=== PATIENT | male | born 2000 | race Caucasian/White ===

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

== ENCOUNTER 2022-11-01 16:06 | Emergency (ER) | payer MEDICAID, SELFPAY ==
[2022-11-01 16:08] VITALS: BP 125/72; PULSE 84; RESP 14; TEMP 36.7; O2SAT 98; BMI 27.7
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
== END 2022-11-01 19:35 | disposition home or self-care (01) ==
PROVIDERS: Emergency Provider Student in an Organized Health Care Education/Training Program; PCP Pediatrics; Visit Provider Student in an Organized Health Care Education/Training Program
DX: S06.0X0A Concussion without loss of consciousness, initial encounter (principal); S00.83XA Contusion of other part of head, initial encounter; Y04.2XXA Assault by strike against or bumped into by another person, initial encounter; K04.7 Periapical abscess without sinus; Z79.899 Other long term (current) drug therapy
CPT/HCPCS: 70450; 70486; 99283

== ENCOUNTER 2022-12-03 12:28 | Emergency (ER) | payer MEDICAID, SELFPAY ==
[2022-12-03 12:30] VITALS: BP 142/81; PULSE 82; RESP 16; TEMP 36.2; O2SAT 97; BMI 26.7
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
[2022-12-03 13:43] VITALS: RESP 16
== END 2022-12-03 13:44 | disposition home or self-care (01) ==
PROVIDERS: Emergency Provider Emergency Medicine; PCP Pediatrics; Visit Provider Emergency Medicine
DX: S61.412A Laceration without foreign body of left hand, initial encounter (principal); S61.213A Laceration without foreign body of left middle finger without damage to nail, initial encounter; S60.212A Contusion of left wrist, initial encounter; Z23 Encounter for immunization; V40.7XXA Person on outside of car injured in collision with pedestrian or animal in traffic accident, initial encounter; Y92.028 Other place in mobile home as the place of occurrence of the external cause
CPT/HCPCS: 90715; 73110; 73130; 90471; 99284

== ENCOUNTER 2023-01-07 13:37 | Emergency (ER) | payer MEDICAID, SELFPAY ==
[2023-01-07 13:38] VITALS: BP 127/83; PULSE 90; RESP 16; TEMP 36.7; O2SAT 98
[2023-01-07 13:45] VITALS: BMI 25.9
--- NOTE | 2023-01-07 13:48 | RAD_ITS ---
EXAM: XR RIGHT KNEE COMPLETE, 4 OR MORE VIEWS CLINICAL INDICATION: Injury/Pain TECHNIQUE: Four or more views of the right knee. COMPARISON: No relevant prior studies available. FINDINGS: BONES/JOINTS: Unremarkable. No acute fracture. No subluxation. Normal alignment. Preservation of the joint space. No sclerotic or destructive changes observed. SOFT TISSUES: Unremarkable. No soft tissue swelling or gas. No radiopaque foreign body. RAD/Knee 4 or More Views IMPRESSION: Negative right knee x-rays. Electronically Signed: Josh Olsen MD at 14:43 EDT ,
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
== END 2023-01-07 14:54 | disposition home or self-care (01) ==
PROVIDERS: Emergency Provider Emergency Medicine; PCP Pediatrics; Visit Provider Emergency Medicine
DX: S80.01XA Contusion of right knee, initial encounter (principal); W22.03XA Walked into furniture, initial encounter; Y93.83 Activity, rough housing and horseplay; F84.0 Autistic disorder
CPT/HCPCS: 73564; 99282

== ENCOUNTER 2023-07-08 18:40 | Emergency (ER) | payer MEDICAID, SELFPAY ==
[2023-07-08 18:41] VITALS: BP 138/76; PULSE 63; PULSE 69; RESP 15; TEMP 36.2; O2SAT 97; O2SAT 99; BMI 24.7
--- NOTE | 2023-07-08 18:50 | ED.VIS.DENTA ---
HPI History of Present Illness Chief Complaint: Dental Detail of Chief Complaint: Dental pain Informant: patient Narrative Narrative: Patient presents with dental pain x 4 days. He denies any trauma to his teeth. Does not have a dentist. Denies fevers or chills or sweats. Describes pain to upper and lower left teeth. [facility] Medical History ADHD Autism Home Medications amoxicillin 500 mg tablet 500 mg PO TID #30 tabs 07/08/23 [Rx Last Taken Unknown] hydrocodone-acetaminophen 5-325mg 5mg-325mg 1 tab PO Q4H PRN PRN Pain 2 days #10 TABLETS 07/08/23 [Rx Last Taken Unknown] Allergy/AdvReac Type Severity Reaction Status Date / Time No Known Allergies Allergy Verified 07/08/23 18:43 Social History Smoking Status: Never smoker do you feel safe at home: Yes ROS ROS ED Review of Systems ROS Unobtainable: other Constitutional Constitutional ED: Reports lethargy; Denies chills, fever(s), sweats or weight loss Eyes Eyes: Denies blurry vision, change in vision or diplopia ENT ENT ED: Reports other Details: Dental pain ; Denies rhinorrhea or sore throat Cardiovascular Cardiovascular: Denies chest pain, orthopnea or racing heartbeat Respiratory/Chest Respiratory/Chest: Denies cough, dyspnea, dyspnea on exertion, orthopnea or sputum Gastrointestinal Gastrointestinal: Denies abdominal pain, diarrhea, nausea or vomiting Genitourinary Genitourinary ED: Denies dysuria, hematuria or urinary frequency Musculoskeletal Musculoskeletal: Denies arthralgias, back pain, myalgias or neck pain Integumentary Denies abscess, Abrasions or rash Neurologic Neurologic: Denies headache(s) or weakness Psychiatric Psychiatric: Denies anxiety, depression or suicidal thoughts Endocrine Endocrinology: Denies polydipsia, polyphagia or polyuria Hematologic/Lymphatic Hematologic/Lymphatic: Denies easy bleeding, easy bruising or lymphadenopathy Allergic/Immunologic Allergic/Immunologic ED: Denies mouth swelling, tongue swelling or urticaria EXAM Physical Exam Const Vital Signs: 07/08/23 18:41 07/08/23 18:41 Temperature 97.2 F L 97.2 F L Temperature Source Temporal Temporal Pulse Rate 63 69 Respiratory Rate 15 15 Blood Pressure 138/76 H 138/76 H Blood Pressure Mean 96 96 Pulse Ox 99 97 Oxygen Delivery Method Room Air Room Air Positive well nourished and well developed General Appearance ED: well developed and NAD HEENT Reports TM's clear and moist mucous membranes HEENT Narrative: Dentition-patient has multiple broken and carious teeth. Specifically has tenderness over tooth #13 and 20. Teeth are carried and #20 is worn down to the gumline. No gingival erythema or abscess noted. There is no facial swelling or cellulitic changes. normocephalic and atraumatic; Negative for trauma or tenderness Tympanic Membrane ED: Yes TM's clear Eyes PERRL and EOMs intact bilaterally General Eye ED: Negative for pale conjunctiva or scleral icterus Neck no lymphadenopathy, supple and no JVD General: Negative for tenderness Chest Wall inspection of chest normal and palpation of chest normal Chest: Negative for tenderness Resp normal respiratory effort and clear to auscultation bilaterally Effort and Inspection: Negative for respiratory distress or pain with movement Auscultation: Negative for rhonchi, wheezes or diminished lung sounds Cardio regular rate, regular rhythm, S1 normal heart sound, S2 normal heart sound and no murmurs Peripheral Pulses: pulses 2+ throughout GI normal to inspection, nondistended, normoactive bowel sounds, soft to palpation, non-tender, non-distended and no masses Back/Spine no CVA tenderness and no thoracic nor lumbar tenderness Extremity normal to inspection General Extremety ED: Negative for edema General Extremity: Negative for edema Neuro oriented x3, CN's II-XII intact bilaterally, no sensory deficits noted and gait normal Sensorium / Orientation: awake, alert, oriented to person, oriented to place and oriented to time Motor Exam: strength 5/5 throughout and strength abnormal Psych mental status grossly normal Skin no rashes or lesions noted and no wounds MDM MDM MDM Narrative Medical decision making narrative: Patient presents with 4-day history of dental pain. He will be given a prescription for amoxicillin and few Elizabeth for pain. Advised to follow-up with a dentist at the earliest possible time. Will be given a list of dentists. Discharge Plan Triage Chief Complaint: Dental ED Provider: Edgardo Cordova Dx/Rx/DC Orders Clinical Impression: Dental caries, Pain, dental Instructions: ED Dental Pain Prescriptions: New hydrocodone-acetaminophen [hydrocodone-acetaminophen] 5-325 mg tablet 1 tab PO Q4H PRN PRN (Reason: Pain) 2 Days Qty: 10 0RF amoxicillin 500 mg tablet 500 mg PO TID Qty: 30 0RF Primary Care Provider: Delon Perdomo Referrals: Delon Perdomo DO [Primary Care Provider] - Activity Restrictions/Additional Instructions: Follow-up with dentist at the earliest possible time. Disposition Disposition: Home, Self Care
[2023-07-08 19:28] VITALS: BP 143/84; PULSE 64; RESP 18; TEMP 36.6; O2SAT 97
[2023-07-08] MEDS: AMOXICILLIN 500 MG CAPSULE PO (19:28)
== END 2023-07-08 19:35 | disposition home or self-care (01) ==
LOC: ED 18:55
PROVIDERS: Emergency Provider Emergency Medicine; PCP Pediatrics; Visit Provider Emergency Medicine
DX: K08.89 Other specified disorders of teeth and supporting structures (principal); K02.9 Dental caries, unspecified; S02.5XXA Fracture of tooth (traumatic), initial encounter for closed fracture; X58.XXXA Exposure to other specified factors, initial encounter
CPT/HCPCS: 99282

== ENCOUNTER 2023-10-28 13:14 | Emergency (ER) | payer MEDICAID, SELFPAY ==
[2023-10-28 13:15] VITALS: BP 142/72; PULSE 81; RESP 17; TEMP 36.6; O2SAT 97; BMI 26.5
--- NOTE | 2023-10-28 13:24 | RAD_ITS ---
STUDY: X-RAY - RIGHT ELBOW REASON FOR EXAM: Male, 23 years old. elbow pain TECHNIQUE: 3 view(s) of the elbow. COMPARISON: None. FINDINGS: Normal visualized humerus, radius and ulna. Normal radiocapitellar and ulnotrochlear articulations. The soft tissue structures are unremarkable. RAD/Elbow min 3 Views IMPRESSION: Normal x-ray examination of the elbow. Electronically Signed: Bijan Kohler MD ([place]) at 13:40 EDT ,
--- NOTE | 2023-10-28 13:28 | ED.VIS.DENTA ---
HPI History of Present Illness Chief Complaint: Dental Narrative Narrative: 23-year-old male presenting with chief complaint of dental pain. Its on the upper and lower teeth. He states this is an acute on chronic issue. Pain started yesterday. Patient has poor dentition and states he does not have a dentist. He states he does get flareups where he needs antibiotics. Patient also states that yesterday he was skateboarding and fell and landed on his elbow. He states it hurts over the olecranon. There is no bruising or deformity. [facility] Medical History ADHD Autism Home Medications ?Medication ?Instructions ?Recorded ?Last Taken ?Type amoxicillin 875 mg-potassium 1 tab PO BID #20 tabs 10/28/23 Unknown Rx clavulanate 125 mg tablet naproxen 500 mg tablet (Naprosyn) 500 mg PO BID PRN pain #20 tabs 10/28/23 Unknown Rx Allergy/AdvReac Type Severity Reaction Status Date / Time No Known Allergies Allergy Verified 10/28/23 13:15 Social History Smoking Status: Current every day smoker tobacco type: cigarettes do you feel safe at home: Yes ROS ROS ED Constitutional Constitutional ED: Denies chills, fever(s) or sweats Eyes Eyes: Denies blurry vision or change in vision ENT ENT ED: Reports other Details: Dental pain ; Denies ear pain or sore throat Cardiovascular Cardiovascular: Denies chest pain, palpitations or racing heartbeat Respiratory/Chest Respiratory/Chest: Denies cough, dyspnea or sputum Gastrointestinal Gastrointestinal: Denies abdominal pain, constipation, diarrhea, nausea or vomiting Genitourinary Genitourinary ED: Denies dysuria, hematuria or urinary frequency Musculoskeletal Musculoskeletal: Reports other Details: Right elbow pain ; Denies arthralgias, myalgias or neck pain Integumentary Denies abscess, Abrasions or rash Neurologic Neurologic: Denies headache(s), paresthesias or weakness Psychiatric Psychiatric: Denies anxiety, depression, suicidal ideation or suicidal thoughts Endocrine Endocrinology: Denies polydipsia or polyuria EXAM Physical Exam Const Vital Signs: 10/28/23 13:15 Temperature 97.8 F Temperature Source Temporal Pulse Rate 81 Respiratory Rate 17 Blood Pressure 142/72 H Blood Pressure Mean 95 Pulse Ox 97 Oxygen Delivery Method Room Air Positive well nourished General Appearance ED: NAD HEENT HEENT Narrative: Multiple dental caries and partially edentulous. No fluctuant masses. No sublingual edema. Tongue is not swollen. No submental I have a patient list. trauma Throat: posterior oropharynx normal Eyes PERRL and EOMs intact bilaterally Neck no lymphadenopathy Resp normal respiratory effort Cardio regular rate and regular rhythm GI normal to inspection, nondistended, normoactive bowel sounds Extremity Extremity Narrative: Tenderness palpation over the right olecranon cleared for any significant full range of motion in flexion, extension, pronation, supination. No deformity, bruising Neuro oriented x3 Sensorium / Orientation: alert Motor Exam: strength 5/5 throughout Psych mental status grossly normal Skin no rashes or lesions noted MDM MDM MDM Narrative Medical decision making narrative: 23-year-old male with dental pain. For this I will treat him with Augmentin. I do not see any evidence of Ludewig's angina. His right elbow exam is normal but he wishes to have an x-ray because his sister fractured her elbow before. X-ray of the right elbow will be obtained. X-ray of the right elbow interpreted by myself shows no acute fracture or subluxation. Patient medicated with Naprosyn and Augmentin here in the ED. Feel he stable for discharge. Will give prescription for Augmentin and Naprosyn. He was given a dental referral sheet. Impression: 1. Dental pain 2. Right elbow contusion Lab Data Attestation: I reviewed the patient's lab results. Radiography Diagnostic Testing: Clinical Impression(s) from Imaging Studies Elbow X-Ray 10/28/23 13:24 IMPRESSION: Normal x-ray examination of the elbow. Electronically Signed: Bijan Kohler MD ([place]) at 13:40 EDT Reading Location ID and State: [facility] / [place] , Service support , Discharge Plan Triage Chief Complaint: Dental ED Provider: Alexi Carter Dx/Rx/DC Orders Instructions: ED Contusion, Elbow, ED Dental Pain Prescriptions: New naproxen [Naprosyn] 500 mg tablet 500 mg PO BID PRN (Reason: pain) Qty: 20 0RF amoxicillin-pot clavulanate 875-125 mg tablet 1 tab PO BID Qty: 20 0RF Primary Care Provider: Delon Perdomo Referrals: Delon Perdomo DO [Primary Care Provider] - Print Language: German Disposition Disposition: Home, Self Care
[2023-10-28] MEDS: Amox/Clavulanate 875 MG Tablet PO (13:40)
[2023-10-28] MEDS: Naproxen 500 MG Tablet PO (13:40)
[2023-10-28 14:00] VITALS: BP 138/74; PULSE 85; RESP 18; TEMP 36.3; O2SAT 95
== END 2023-10-28 14:01 | disposition home or self-care (01) ==
LOC: ED 13:48
PROVIDERS: Emergency Provider Student in an Organized Health Care Education/Training Program; PCP Pediatrics; Visit Provider Student in an Organized Health Care Education/Training Program
DX: K08.89 Other specified disorders of teeth and supporting structures (principal); S50.01XA Contusion of right elbow, initial encounter; V00.131A Fall from skateboard, initial encounter; F84.0 Autistic disorder; F17.210 Nicotine dependence, cigarettes, uncomplicated
CPT/HCPCS: 73080; 99284

== ENCOUNTER 2023-11-03 09:24 | Emergency (ER) | payer MEDICAID, SELFPAY ==
[2023-11-03 09:25] VITALS: BP 142/77; PULSE 103; RESP 16; TEMP 36.4; O2SAT 100; BMI 26.5
--- NOTE | 2023-11-03 09:44 | EDS_ITS ---
HPI HPI - URI History of Present Illness Chief Complaint: Sore Throat Narrative Narrative: 23-year-old male past medical history of poor dentition and autism presents with 4 days of sore throat and pain with swallowing. This has been over the last 4 days. Of note, he was seen in the emergency department and placed on Augmentin for dental caries and tooth pain. He states that he has pain with swallowing, and this morning he woke reportedly gasping for air. No fevers or chills, no nausea or vomiting. ROS ROS ED ROS Narrative Constitutional: No fever, no chills. HEENT: Positive sore throat worse with swallowing. No neck pain. No loss of vision. No rhinorrhea. Cardiovascular: No chest pain. No palpitations. No pedal edema. Respiratory: No cough, positive shortness of breath this morning. Abdominal: No abdominal pain. No nausea. No vomiting. Genitourinary: No dysuria. No hematuria. Musculoskeletal: No myalgias. No arthralgias. Neurologic: No headaches. No dizziness. No lightheadedness. Skin: No rash. No change in color. Psychiatric: No depression. No anxiety. [facility] Medical History Substance abuse ADHD Autism Home Medications ?Medication ?Instructions ?Recorded ?Last Taken ?Type amoxicillin 875 mg-potassium 1 tab PO BID #20 tabs 10/28/23 Unknown Rx clavulanate 125 mg tablet naproxen 500 mg tablet (Naprosyn) 500 mg PO BID PRN pain #20 tabs 10/28/23 Unknown Rx clindamycin HCl 300 mg capsule 300 mg PO Q6H #40 CAPSULES 11/03/23 Unknown Rx (Cleocin HCl) dexamethasone 6 mg tablet 6 mg PO DAILY #7 tabs 11/03/23 Unknown Rx Allergy/AdvReac Type Severity Reaction Status Date / Time No Known Allergies Allergy Verified 11/03/23 09:25 Social History Smoking Status: Current every day smoker tobacco type: cigarettes do you feel safe at home: Yes EXAM Physical Exam Narrative Exam Narrative: Afebrile. Vital signs noted. HEENT: Normocephalic. Atraumatic. PERRL, EOMI. Neck soft and supple. No point tenderness or step off. Positive right peritonsillar swelling with noted tonsillar exudate, right. Airway patent. No drooling or trismus. No meningismus. Cardiovascular: Regular rate and rhythm with intermittent tachycardia. No murmurs, rubs, or gallops appreciated. Respiratory: No tachypnea. Lungs clear to auscultation bilaterally. Gastrointestinal: Abdomen soft, nontender, with normoactive bowel sounds. No rebound or guarding. Neurological: Awake. Alert. Nonfocal, nonlateralizing. Skin: No rash. Normal color. No pallor. Musculoskeletal: No pedal edema. Full range of motion extremities. Const Vital Signs: 11/03/23 09:25 Temperature 97.5 F L Temperature Source Temporal Pulse Rate 103 H Respiratory Rate 16 Blood Pressure 142/77 H Blood Pressure Mean 98 Pulse Ox 100 Oxygen Delivery Method Room Air MDM MDM MDM Narrative Medical decision making narrative: Differential diagnosis does include strep pharyngitis versus peritonsillar abscess versus mononucleosis. Patient has already been taking Augmentin for 6 days for his poor dentition. I do not feel laboratory work in the form of CBC/BMP is indicated to look for dehydration. I do not feel CT imaging is indicated. His pulse ox is 100% on room air. There is no drooling or trismus so I have low concern for retropharyngeal abscess. He was able to swallow the Decadron that he was given, and upon repeat examination at approximately 11 AM, he is laying down in the supine position, and on his side resting comfortably. I discussed patient with Dr. Quiroga. He would like a Monospot test drawn, and the patient switched to clindamycin. Additionally, he was put on a Decadron burst of 6 mg for 7 days. He will follow-up with otolaryngology in the next few days. Return instructions to the emergency department were reviewed. Disposition is discharged home in stable condition. History & Record Review Discussion w/independent historian: Patient Discharge Plan Triage Chief Complaint: Sore Throat ED Provider: Josh Ordoñez Dx/Rx/DC Orders Clinical Impression: Peritonsillar abscess, Tonsillar exudate Instructions: ED Peritonsillar Abscess Prescriptions: New clindamycin HCl [Cleocin HCl] 300 mg capsule 300 mg PO Q6H Qty: 40 0RF dexamethasone 6 mg tablet 6 mg PO DAILY Qty: 7 0RF No Action naproxen [Naprosyn] 500 mg tablet 500 mg PO BID PRN (Reason: pain) Qty: 20 0RF amoxicillin-pot clavulanate 875-125 mg tablet 1 tab PO BID Qty: 20 0RF Primary Care Provider: Delon Perdomo Referrals: Delon Perdomo DO [Primary Care Provider] - Sanjay Quiroga MD [Med Staff - Active Staff] - 3-5 Days Activity Restrictions/Additional Instructions: Return with inability to swallow liquids, new or worsening symptoms. Print Language: Guinean Disposition Disposition: Home, Self Care
[2023-11-03] MEDS: dexAMETHasone 4 MG Tablet 8 MG PO (09:52)
[2023-11-03] MEDS: Clindamycin HCl 150 MG Capsule 300 MG PO (11:13)
[2023-11-03 11:24] VITALS: BP 138/79; PULSE 103; RESP 16; TEMP 36.7; O2SAT 100
[2023-11-03 11:40] LABS: Internal QC Validated? YES +Cl - CLEAR BKGD; Monotest Negative (Negative); Record Kit Lot#, Mono 13241033
== END 2023-11-03 11:59 | disposition home or self-care (01) ==
PROVIDERS: Emergency Provider Emergency Medicine; PCP Pediatrics; Visit Provider Emergency Medicine
DX: J36 Peritonsillar abscess (principal); F17.210 Nicotine dependence, cigarettes, uncomplicated; F84.0 Autistic disorder; K02.9 Dental caries, unspecified; F90.9 Attention-deficit hyperactivity disorder, unspecified type
CPT/HCPCS: 86308; 99283

== ENCOUNTER 2024-05-04 21:52 | Emergency (ER) | payer SELFPAY ==
[2024-05-04 21:53] VITALS: BP 136/84; PULSE 86; RESP 18; TEMP 36.5; O2SAT 100; BMI 26.3
[2024-05-04] MEDS: Ibuprofen 600 MG Tablet PO (22:47)
[2024-05-04] MEDS: HYDROcodone Bitartrate/Apap 5/325 Tablet PO (22:48)
--- NOTE | 2024-05-04 22:48 | EDS_ITS ---
HPI History of Present Illness Chief Complaint: Upper Extremity Injury Informant: patient Narrative Narrative: [id number] male mechanical fall on ice this evening right on his elbow. No head injuries. Pain with movement elbow. History of broken pinky in the past. No allergies. No medications taken prior to arrival. Prior similar symptoms: No [facility] Medical History Substance abuse ADHD Autism Home Medications ?Medication ?Instructions ?Recorded ?Last Taken ?Type hydrocodone-acetaminophen 5-325mg 1 tab PO Q6H PRN PRN Pain 3 days 05/04/24 Unknown Rx 5mg-325mg #12 TABLETS ibuprofen 600 mg tablet 600 mg PO Q6H PRN PRN pain # 20 05/04/24 Unknown Rx TABLETS Allergy/AdvReac Type Severity Reaction Status Date / Time No Known Allergies Allergy Verified 05/04/24 22:00 Social History Smoking Status: Current every day smoker tobacco type: cigarettes and e- cigarettes do you feel safe at home: Yes ROS ROS ED Constitutional Constitutional ED: Denies chills, fever(s) or sweats Cardiovascular Cardiovascular: Denies chest pain Respiratory/Chest Respiratory/Chest: Denies cough Gastrointestinal Gastrointestinal: Denies abdominal pain, diarrhea, nausea or vomiting Musculoskeletal Musculoskeletal: Reports extremity pain; Denies back pain or neck pain Integumentary Denies rash or wounds Neurologic Neurologic: Denies headache(s), paresthesias or weakness EXAM Physical Exam Const Vital Signs: 05/04/24 21:53 Temperature 97.7 F L Temperature Source Temporal Pulse Rate 86 Respiratory Rate 18 Blood Pressure 136/84 H Blood Pressure Mean 101 Pulse Ox 100 Oxygen Delivery Method Room Air Positive well nourished and well developed Constitutional Narrative: GCS 15. General Appearance ED: well developed and NAD HEENT Reports moist mucous membranes normocephalic and atraumatic Eyes General Eye ED: Yes normal appearance of both eyes Neck full ROM Chest Wall Chest: Negative for tenderness Resp normal respiratory effort and normal air movement Effort and Inspection: symmetric chest movement; Negative for respiratory distress Cardio regular rate, regular rhythm and no murmurs Peripheral Pulses: pulses 2+ throughout GI normal to inspection, nondistended, normoactive bowel sounds and non-tender Palpation: Negative for guarding or rebound tenderness present Back/Spine Negative for no CVA tenderness Back/Spine Narrative: No midline thoracic or lumbar tenderness. Extremity Extremity Narrative: Right upper extremity: Full range of motion without any pain. Left upper extremity: No clavicle tenderness no proximal shoulder no wrist tenderness. Elbow exam tender olecranon pain with extension pronation supination tender palpation over the radial head. Skin is intact. Soft compartments. General Extremety ED: Yes tenderness; Negative for edema General Extremity: Negative for edema Neuro oriented x3 and no sensory deficits noted Sensorium / Orientation: awake and alert Skin no rashes or lesions noted and no wounds MDM MDM MDM Narrative Medical decision making narrative: Interventions / MDM: Differential diagnosis: Contusion, occult fracture Diagnosis considered but do not suspect: N/A My EKG interpretation: N/A Imaging independently reviewed and interpreted by myself: Left elbow 3 views: No fracture no dislocation no posterior fat pads External documents reviewed: N/A Test considered but not ordered:N/A ED course: Clinically exam concerns for radial head fracture with elbow injury. I will dose her with Motrin and Chataignier, x-ray left elbow for further evaluation. X-ray interpreted myself and read by radiology no clear fractures. However patient tender radial head, there is no fat pad on x-ray. I will place him sling. Discussed removal 3-4 times a day. He will given prescription for pain medicines. He is given orthopedic follow-up as an outpatient. Discussed if continued pain after week may need reimaging's. All questions were answered. Re-evaluation: stable Disposition discussed with patient/family/significant other: Patient Case discussed with consulting clinician: N/A This note was generated with Outski dictation software. It may contain incorrect words, spelling, and punctuation that were not noted in checking the note before signing. Discharge Plan Triage Chief Complaint: Upper Extremity Injury ED Provider: Tal Robles Dx/Rx/DC Orders Clinical Impression: Contusion of elbow, left, Fall Instructions: ED Contusion, Upper Extremity Prescriptions: New hydrocodone-acetaminophen 5-325 mg tablet 1 tab PO Q6H PRN PRN (Reason: Pain) 3 Days Qty: 12 0RF ibuprofen 600 mg tablet 600 mg PO Q6H PRN PRN (Reason: pain) Qty: 20 0RF Primary Care Provider: Care Physician,No Primary Referrals: [facility] [Outside] - 1-2 Weeks Delon Perdomo, [Non-Staff] - Activity Restrictions/Additional Instructions: X-ray no clear fractures. Use sling for comfort removed 3-4 times a day and move around. Take medications as prescribed. If persistent pain after week, follow-up with her doctor or orthopedics for reimaging. Print Language: Cypriot Disposition Disposition: Home, Self Care Discharge Date/Time: 05/04/24 23:44
--- NOTE | 2024-05-04 22:55 | RAD_ITS ---
PROCEDURE: ELBOW MIN 3 VIEWS REASON FOR EXAM: Fell on ice. TECHNIQUE: 3 view(s) of left elbow. COMPARISON: None. FINDINGS: LEFT ELBOW: No visible fracture. No suspicious bone lesion. Normal alignment. No effusion. Soft tissues are unremarkable. RAD/Elbow min 3 Views IMPRESSION: No acute osseous findings involving the left elbow. Reading Location: [facility]
[2024-05-04 23:36] VITALS: BP 115/71; PULSE 69; RESP 16; TEMP 36.4; O2SAT 99
== END 2024-05-04 23:44 | disposition home or self-care (01) ==
PROVIDERS: Emergency Provider Emergency Medicine; Visit Provider Emergency Medicine
DX: S50.02XA Contusion of left elbow, initial encounter (principal); W00.0XXA Fall on same level due to ice and snow, initial encounter; F17.210 Nicotine dependence, cigarettes, uncomplicated; F17.290 Nicotine dependence, other tobacco product, uncomplicated
CPT/HCPCS: 73080; 99283

== ENCOUNTER 2024-10-29 22:20 | Emergency (ER) | payer SELFPAY ==
--- NOTE | 2024-10-29 22:26 | ED.RN ---
Dr. Cruz notified of pt's symptoms in triage, ok to room pt and wait for MD assessment. Will obtain ekg while waiting for room per MD request.
[2024-10-29 22:27] VITALS: BP 128/90; PULSE 87; RESP 18; TEMP 36.5; O2SAT 98
--- NOTE | 2024-10-29 23:28 | EKG12_ITS ---
Test Reason : CP Blood Pressure : */* mmHG Vent. Rate : 88 BPM Atrial Rate : 88 BPM P-R Int : 144 ms QRS Dur : 92 ms QT Int : 350 ms P-R-T Axes : 59 13 37 degrees QTcB Int : 423 ms Normal sinus rhythm Normal ECG Confirmed by JOAO SERRANO, ALKA ([id number]), marketing editor MOISE MEDRANO ([id number]) on 10/30/2024 8:38:27 AM Referred By: TB Confirmed By: ALKA SHEPHERD MD
--- NOTE | 2024-10-29 23:36 | EDS_ITS ---
HPI History of Present Illness Chief Complaint: General Illness Informant: patient Narrative Narrative: 24-year-old male states after doing shrooms and vaping off of his dolan he started having epigastric/lower chest discomfort, and he felt numb throughout his right upper and lower extremity although he states now the numbness is gone. He states he forced himself to vomit and it helped the chest discomfort some, it was pressure and sharp nonpleuritic he states he felt a little short of breath but not really. [facility] Medical History Substance abuse ADHD Autism Home Medications ?Medication ?Instructions ?Recorded ?Last Taken ?Type hydrocodone-acetaminophen 5-325mg 1 tab PO Q6H PRN PRN Pain 3 days 05/04/24 Unknown Rx 5mg-325mg #12 TABLETS ibuprofen 600 mg tablet 600 mg PO Q6H PRN PRN pain # 20 05/04/24 Unknown Rx TABLETS Allergy/AdvReac Type Severity Reaction Status Date / Time No Known Allergies Allergy Verified 10/29/24 22:27 Social History Smoking Status: Current every day smoker tobacco type: cigarettes and e- cigarettes do you feel safe at home: Yes ROS ROS ED Constitutional Constitutional ED: Denies chills or fever(s) Eyes Eyes: Denies change in vision or diplopia ENT ENT ED: Denies rhinorrhea or sore throat Cardiovascular Cardiovascular: Reports chest pain; Denies palpitations Respiratory/Chest Respiratory/Chest: Denies cough or dyspnea Gastrointestinal Gastrointestinal: Reports vomiting; Denies abdominal pain, diarrhea or nausea Genitourinary Genitourinary ED: Denies dysuria or hematuria Musculoskeletal Musculoskeletal: Denies back pain or neck pain Integumentary Denies abscess or rash Neurologic Neurologic: Reports paresthesias RUE and RLE; Denies headache(s) or weakness Psychiatric Psychiatric: Denies anxiety or suicidal thoughts EXAM Physical Exam Const Vital Signs: 10/29/24 22:27 10/29/24 23:58 10/30/24 00:26 Temperature 97.7 F L Temperature Source Oral Pulse Rate 87 77 Respiratory Rate 18 14 Respiratory Effort Normal Respiratory Pattern Normal Blood Pressure 128/90 H 130/72 H Blood Pressure Mean 102 91 Pulse Ox 98 98 Oxygen Delivery Method Room Air Room Air Positive well nourished and well developed General Appearance ED: well developed and NAD HEENT Reports moist mucous membranes normocephalic and atraumatic Eyes PERRL and EOMs intact bilaterally Neck full ROM and supple Resp normal respiratory effort and clear to auscultation bilaterally Cardio regular rate, regular rhythm and no murmurs GI non-distended GI Narrative: Mild epigastric tenderness no pulsatile mass no other abdominal tenderness negative Deal no guarding or rebound Auscultation: normoactive bowel sounds Palpation: soft Back/Spine no CVA tenderness General Back: other FROM Extremity normal to inspection General Extremety ED: Negative for edema, pulses abnormal or tenderness General Extremity: Negative for edema or pulses abnormal Neuro oriented x3, CN's II-XII intact bilaterally and no sensory deficits noted Sensorium / Orientation: awake and alert Motor Exam: strength 5/5 throughout Psych Mood & Affect: anxious Skin no rashes or lesions noted and no wounds MDM MDM MDM Narrative Medical decision making narrative: EKG was obtained and is normal in context patient still having discomfort, I did a two-view chest x-ray which interpretation is normal radiology confirmed that. In the meantime I gave him a GI cocktail as my suspicion for this being esophageal was high, he said that medication resolve the discomfort and he feels much better. Patient stable for discharge home I do not think he needs a troponin measurement his vital signs are normal, we discussed reasons to return he is comfortable with that plan. Radiography Diagnostic Testing: Clinical Impression(s) from Imaging Studies Chest X-Ray 10/29/24 23:45 IMPRESSION: No acute chest findings. Reading Location: [place] [id number] Rhythm Strip Rhythm Strip: Sinus Rhythm Rate: 85 Ectopy: None EKG Initial EKG: Attestation: I personally reviewed and interpreted this EKG as follows: Interpretation: Sinus Rhythm and No Acute Injury Pattern Comments: Nml axis & intervals; nml EKG Discharge Plan Triage Chief Complaint: General Illness ED Provider: Eduardo Cruz Dx/Rx/DC Orders Clinical Impression: Chest pain due to GERD, Paresthesias, Drug use Instructions: ED Chest Pain, Noncardiac, ED GERD (Adult) Prescriptions: No Action hydrocodone-acetaminophen 5-325 mg tablet 1 tab PO Q6H PRN PRN (Reason: Pain) 3 Days Qty: 12 0RF ibuprofen 600 mg tablet 600 mg PO Q6H PRN PRN (Reason: pain) Qty: 20 0RF Primary Care Provider: Care Physician,No [facility] [Non-Staff[facility] - As Needed Print Language: Divehi Disposition Disposition: Home, Self Care
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
--- NOTE | 2024-10-29 23:45 | RAD_ITS ---
PROCEDURE: CHEST PA AND LATERAL 10/29/2024 REASON FOR EXAM: CHEST PAIN TECHNIQUE: CHEST PA AND LATERAL COMPARISON: No FINDINGS: Normal heart size. Well inflated lungs. No consolidation, effusion or pneumothorax. RAD/Chest PA and Lateral IMPRESSION: No acute chest findings. Reading Location: [place] [id number]
[2024-10-29] MEDS: Lidocaine 2% Viscous15 ML UDC 15 ML PO (23:56)
[2024-10-29 23:58] VITALS: BMI 24.6
[2024-10-30 00:26] VITALS: BP 130/72; PULSE 77; RESP 14; O2SAT 98
[2024-10-30 00:50] VITALS: BP 121/80; PULSE 66; RESP 14; TEMP 36.6; O2SAT 100
== END 2024-10-30 00:53 | disposition home or self-care (01) ==
PROVIDERS: Emergency Provider Emergency Medicine; Visit Provider Emergency Medicine
DX: K21.9 Gastro-esophageal reflux disease without esophagitis (principal); F16.988 Hallucinogen use, unspecified with other hallucinogen-induced disorder; R07.9 Chest pain, unspecified; R20.2 Paresthesia of skin; F17.290 Nicotine dependence, other tobacco product, uncomplicated; F17.210 Nicotine dependence, cigarettes, uncomplicated
CPT/HCPCS: 71046; 93005; 99284

== ENCOUNTER 2024-11-09 05:19 | Emergency (ER) | payer MEDICAID, SELFPAY ==
[2024-11-09 05:20] VITALS: BP 125/77; PULSE 76; RESP 18; TEMP 37.1; O2SAT 99; BMI 25.4
--- NOTE | 2024-11-09 05:36 | EKG12_ITS ---
Test Reason : CHEST PAIN Blood Pressure : */* mmHG Vent. Rate : 71 BPM Atrial Rate : 71 BPM P-R Int : 148 ms QRS Dur : 94 ms QT Int : 362 ms P-R-T Axes : 40 27 36 degrees QTcB Int : 393 ms Normal sinus rhythm with sinus arrhythmia Normal ECG Confirmed by JOAO SERRANO, ALKA ([id number]), acquisition editor VIDYA URIBE ([id number]) on 11/11/2024 1:09:23 PM Referred By: SULY Confirmed By: ALKA SHEPHERD MD
--- NOTE | 2024-11-09 05:42 | RAD_ITS ---
PROCEDURE: CHEST PA AND LATERAL 11/09/2024 REASON FOR EXAM: CHEST PAIN TECHNIQUE: CHEST PA AND LATERAL COMPARISON: 10/29/2024 FINDINGS: Normal heart size. Well inflated lungs. No consolidation, effusion, or pneumothorax. RAD/Chest PA and Lateral IMPRESSION: No acute chest findings. Reading Location: [facility]
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
[2024-11-09 06:14] VITALS: BP 124/72; PULSE 81; RESP 16; TEMP 36.4; O2SAT 98
== END 2024-11-09 06:15 | disposition home or self-care (01) ==
PROVIDERS: Emergency Provider Emergency Medicine; Visit Provider Emergency Medicine
DX: R07.9 Chest pain, unspecified (principal); F90.9 Attention-deficit hyperactivity disorder, unspecified type; F17.210 Nicotine dependence, cigarettes, uncomplicated; F17.290 Nicotine dependence, other tobacco product, uncomplicated
CPT/HCPCS: 71046; 93005; 99283; A4216

== ENCOUNTER 2024-12-03 19:44 | Emergency (ER) | payer MEDICAID, SELFPAY ==
[2024-12-03 19:45] VITALS: BP 129/74; PULSE 104; RESP 16; TEMP 36.6; O2SAT 98; BMI 25.0
== END 2024-12-03 21:25 | disposition left against medical advice (07) ==
LOC: ED 21:28
DX: S01.80XA Unspecified open wound of other part of head, initial encounter (principal); R51.9 Headache, unspecified; M79.642 Pain in left hand; Z53.21 Procedure and treatment not carried out due to patient leaving prior to being seen by health care provider; Y09 Assault by unspecified means; Y92.524 Gas station as the place of occurrence of the external cause
CPT/HCPCS: 99281

== ENCOUNTER 2024-12-14 20:37 | Emergency (ER) | payer SELFPAY ==
[2024-12-14 20:38] VITALS: BP 117/75; PULSE 99; RESP 16; TEMP 36.8; O2SAT 97; BMI 24.8
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
--- OUTSIDE RECORDS SUMMARY | 2024-12-14 21:14 | XMS RPT_ITS | CCD ---
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 Primary Care Physician Primary Care Provider Active Start: October 29, 2024 End: October 30, 2024 Dr. Eduardo Cruz MD Attending Provider Active Start: October 29, 2024 End: October 30, 2024 Dr. Eduardo Cruz MD Emergency Provider Active Start: October 29, 2024 End: October 30, 2024 Team Status: Inactive Member Role/Relationship Status Dates No Primary Care Physician Primary Care Provider Active Start: November 09, 2024 End: November 09, 2024 Dr. Barry Rider DO Emergency Provider Active Start: November 09, 2024 End: November 09, 2024 Team Status: Inactive Member Role/Relationship Status Dates No Primary Care Physician Primary Care Provider Active Start: November 09, 2024 End: November 09, 2024 Dr. Barry Rider DO Attending Provider Active Start: November 09, 2024 End: November 09, 2024 Dr. Barry Rider DO Emergency Provider Active Start: November 09, 2024 End: November 09, 2024 Team Status: Inactive Member Role/Relationship Status Dates No Primary Care Physician Primary Care Provider Active Start: December 03, 2024 End: December 03, 2024 Ed Physician Provider Emergency Provider Active Start: December 03, 2024 End: December 03, 2024 FOR RECORDS PERTAINING TO PATIENTS WHO [...] BE BASED ON THE PRIMARY CLINICAL RECORDS. [employer] provides no warranty or guarantee of the accuracy or completeness of information in this document.
[2024-12-14 22:05] VITALS: BP 115/68; PULSE 88; RESP 16; TEMP 36.8; O2SAT 97
== END 2024-12-14 22:06 | disposition home or self-care (01) ==
PROVIDERS: Emergency Provider Emergency Medicine; PCP Pediatrics; Visit Provider Emergency Medicine
DX: S00.83XA Contusion of other part of head, initial encounter (principal); F07.81 Postconcussional syndrome; R11.2 Nausea with vomiting, unspecified; F84.0 Autistic disorder; F17.210 Nicotine dependence, cigarettes, uncomplicated; F17.290 Nicotine dependence, other tobacco product, uncomplicated; Y04.8XXA Assault by other bodily force, initial encounter
CPT/HCPCS: 70450; 99282

== ENCOUNTER 2024-12-16 17:31 | Emergency (ER) | payer SELFPAY ==
[2024-12-16 17:32] VITALS: BP 118/75; PULSE 102; RESP 16; TEMP 36.6; O2SAT 98; BMI 25.1
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
[2024-12-16 18:47] VITALS: BP 97/69; PULSE 72; RESP 18; TEMP 36.8; O2SAT 97
== END 2024-12-16 18:50 | disposition home or self-care (01) ==
PROVIDERS: Emergency Provider Emergency Medicine; PCP Pediatrics; Visit Provider Emergency Medicine
DX: G44.89 Other headache syndrome (principal); F84.0 Autistic disorder; F17.290 Nicotine dependence, other tobacco product, uncomplicated
CPT/HCPCS: 96372; 99283; A4216

== ENCOUNTER 2025-03-13 00:33 | Emergency (ER) | payer SELFPAY ==
[2025-03-13 00:34] VITALS: BP 133/87; PULSE 76; RESP 20; TEMP 36.2; O2SAT 99
--- NOTE | 2025-03-13 00:57 | EKG12_ITS ---
Test Reason : CP Blood Pressure : */* mmHG Vent. Rate : 75 BPM Atrial Rate : 75 BPM P-R Int : 134 ms QRS Dur : 94 ms QT Int : 372 ms P-R-T Axes : 46 29 35 degrees QTcB Int : 415 ms Normal sinus rhythm with sinus arrhythmia Incomplete right bundle branch block Borderline ECG Confirmed by ERIKA SERRANO, CARLEEN ([id number]), editor farm journal VIDYA URIBE ([id number]) on 03/17/2025 6:23:38 AM Referred By: Confirmed By: CARLEEN JAMES MD
--- NOTE | 2025-03-13 01:15 | RAD_ITS ---
PROCEDURE: CHEST PA AND LATERAL 03/13/2025 REASON FOR EXAM: CHEST PAIN TECHNIQUE: Procedure Code: RADCXR Modality: DX Procedure: CHEST PA AND LATERAL COMPARISON: 11/09/2024. FINDINGS: The lungs are expanded. There is no demonstrated parenchymal abnormality. There is no demonstrated pleural abnormality. Normal heart and pericardium. Normal mediastinum and jim. Normal visualized pulmonary arteries. Normal visualized aortic arch and descending thoracic aorta. Normal visualized thoracic spine. Normal visualized ribs, clavicles, and shoulders. There is no demonstrated abnormality of the visualized soft tissue structures of the upper abdomen. RAD/Chest PA and Lateral IMPRESSION: No evidence for acute abnormality. Reading Location: [id number]
[2025-03-13 01:34] VITALS: BP 121/98; PULSE 77; RESP 18; O2SAT 98
[2025-03-13 01:40] LABS: Hematocrit 37.8 % (40-54); Hemoglobin 13.5 g/dL (13.0-16.5); Immature Granulocytes Count 0.010 X10^3/uL (0.0-0.0); Mean Corp Hgb Conc 35.7 g/dL (32-36); Mean Corpuscular Volume 88.3 fL (80-94); Mean Platelet Vol. 10.8 fl (6.2-12.0); NRBC Flagged by Analyzer 0 % (0-5); Platelet Count 168 K/mm3 (150-450); RBC Distribution Width CV 11.3 % (11.6-14.6); RBC Distribution Width SD 36.0 fl (35.1-43.9); Red Blood Count 4.28 M/mm3 (4.6-6.2); White Blood Count 7.1 K/mm3 (4.4-11.0)
[2025-03-13 01:51] LABS: Troponin T High Sensitivity 6 ng/L (<=22)
[2025-03-13 01:53] LABS: Magnesium 2.1 mg/dL (1.5-2.2)
[2025-03-13 01:57] LABS: Anion Gap 12 (5-15); BUN 8 mg/dL (4-19); BUN/Creat Ratio 10.6 RATIO (10-20); Calcium,Total 9.5 mg/dL (7.6-11.0); Carbon Dioxide 27.8 mmol/L (21.0-32.0); Chloride 101 mmol/L (98-108); Glucose 104 mg/dL (70-99); Potassium 3.9 mmol/L (3.3-5.1)
[2025-03-13 02:00] VITALS: BP 121/79; PULSE 73; RESP 17; O2SAT 100
--- NOTE | 2025-03-13 02:07 | EX.ED.DYSGE1 ---
HPI History of Present Illness Chief Complaint: Chest Pain Informant: patient and EMS Narrative Narrative: Patient is a 24-year-old male with history of ADHD. He states he was at home this evening when he developed some midsternal to left-sided lower chest/upper abdominal discomfort. He then experienced a bout of vomiting. He states after this occurred he felt better. However he had concerned this could be cardiac in nature because of the location of the pain and therefore called EMS. The patient admits to smoking marijuana daily but denies any illicit drug use. He also denies any family history of cardiac disease at a young age. He denies any recent travel surgery history of DVT/PE. However as he had concerned that his sudden onset of upper abdominal/lower chest discomfort could be a cardiac event he presents for evaluation [facility] Medical History Substance abuse ADHD Autism Home Medications ?Medication ?Instructions ?Recorded ?Last Taken ?Type NK 11/09/24 Unknown History Allergy/AdvReac Type Severity Reaction Status Date / Time No Known Allergies Allergy Verified 03/13/25 00:39 Social History Smoking Status: Current every day smoker tobacco type: e-cigarettes do you feel safe at home: Yes ROS ROS ED Constitutional Constitutional ED: Denies chills or fever(s) Eyes Eyes: Denies blurry vision or change in vision ENT ENT ED: Denies sore throat Cardiovascular Cardiovascular: Reports chest pain; Denies palpitations or racing heartbeat Respiratory/Chest Respiratory/Chest: Denies cough or dyspnea Gastrointestinal Gastrointestinal: Reports nausea and vomiting; Denies abdominal pain or diarrhea Musculoskeletal Musculoskeletal: Denies back pain or myalgias Integumentary Denies rash Neurologic Neurologic: Denies headache(s) Psychiatric Psychiatric: Reports anxiety Hematologic/Lymphatic Hematologic/Lymphatic: Denies easy bleeding or easy bruising EXAM Physical Exam Const Vital Signs: 03/13/25 00:34 03/13/25 01:08 03/13/25 01:34 Temperature 97.2 F L Temperature Source Temporal Pulse Rate 76 77 Respiratory Rate 20 H 18 Respiratory Effort Normal Blood Pressure 133/87 H 121/98 H Blood Pressure Mean 102 105 Pulse Ox 99 98 Oxygen Delivery Method Room Air Room Air 03/13/25 02:00 03/13/25 02:10 Temperature 98 F Temperature Source Pulse Rate 73 62 Respiratory Rate 17 16 Respiratory Effort Blood Pressure 121/79 H 121/79 H Blood Pressure Mean 93 93 Pulse Ox 100 99 Oxygen Delivery Method Room Air Positive well nourished and well developed General Appearance ED: well developed; Negative for pallor HEENT HEENT Narrative: Normocephalic atraumatic Eyes PERRL and EOMs intact bilaterally General Eye ED: Negative for scleral icterus Neck supple Chest Wall palpation of chest normal Chest Narrative: No bony deformity or subcutaneous emphysema Resp normal respiratory effort and clear to auscultation bilaterally Cardio regular rate and regular rhythm Rate: other Other Details: Regular rate and rhythm without murmurs rubs or gallop Radial and carotid pulses are equal and symmetric No carotid bruit GI normal to inspection, nondistended, normoactive bowel sounds, non-tender, non-distended and no masses GI Narrative: No voluntary guarding or rigidity or pulsatile mass No peritoneal signs Auscultation: normoactive bowel sounds Palpation: soft Extremity normal to inspection Extremity Narrative: No asymmetric edema no pitting edema negative Homans' sign bilaterally Neuro oriented x3, CN's II-XII intact bilaterally and no sensory deficits noted Sensorium / Orientation: alert Motor Exam: strength 5/5 throughout Psych Mood & Affect: anxious Skin no rashes or lesions noted and no wounds General Skin Exam: Negative for jaundice or pallor MDM MDM MDM Narrative Medical decision making narrative: Patient arrived to the ER with stable vitals and reported spontaneous resolution of his discomfort after a bout of vomiting. He is low risk for acute coronary syndrome and he also does not have any risk factors for pulmonary embolus and is PERC negative. Differential diagnosis for his chest discomfort is acute coronary syndrome versus cardiac dysrhythmia versus lung pathology such as pneumonia or pneumothorax. Patient also could have viral myocarditis or symptoms simply could be related to gastritis/GERD. In order to rule out the cardiac event he was concern for basic labs were obtained as well as an EKG and chest x-ray. EKG showed sinus rhythm without ischemia or dysrhythmia changes. Troponin is 6 going against ACS. Chest x-ray reveals no acute lung pathology such as pneumonia or pneumothorax. 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 He had no further bouts of nausea or vomiting and was pain-free for his entire ER stay. Therefore as he is low risk for acute ACS is PERC negative going against PE and his cardiac workup is negative there is no need for further intervention or evaluation and he is otherwise safe for discharge History & Record Review Discussion w/independent historian: EMS personnel and Patient Lab Data Attestation: I reviewed the patient's lab results. Labs: Laboratory Results - last 24 hr 03/13/25 01:10 WBC 7.1 RBC 4.28 L Hgb 13.5 Hct 37.8 L MCV 88.3 MCH 31.5 MCHC 35.7 RDW Std Deviation 36.0 RDW Coeff of [place] 11.3 L Plt Count 168 MPV 10.8 Immature Gran % (Auto) 0.100 Neut % (Auto) 52.9 Lymph % (Auto) 31.2 [place] % (Auto) 12.9 H Eos % (Auto) 2.3 Baso % (Auto) 0.6 Absolute Neuts (auto) 3.8 Absolute Lymphs (auto) 2.22 Nucleated RBC % 0 Sodium 141 Potassium 3.9 Chloride 101 Carbon Dioxide 27.8 Anion Gap 12 BUN 8 Creatinine 0.74 Est GFR (MDRD) Non-Af 131 BUN/Creatinine Ratio 10.6 Glucose 104 H Calcium 9.5 Magnesium 2.1 Troponin T High Sens 6 Radiography Diagnostic Testing: Clinical Impression(s) from Imaging Studies Chest X-Ray 03/13/25 01:15 IMPRESSION: No evidence for acute abnormality. Reading Location: [place] [address] Chest x-ray as interpreted by the emergency medicine physician reveals no acute infiltrate pneumothorax pleural effusion or widening of the mediastinum Discharge Plan Triage Chief Complaint: Chest Pain ED Provider: Melchor Farias Dx/Rx/DC Orders Clinical Impression: Acute nonspecific chest pain with low risk of coronary artery disease, ADHD, [place] smoker Instructions: ED Chest Pain, Uncertain Cause Prescriptions: No Action NK Primary Care Provider: Care Physician,No Primary Referrals: Brandon Christian MD [Med Staff - Active Staff, Family Practice] Care Physician,No Primary [Primary Care Provider, Medical] Activity Restrictions/Additional Instructions: Your workup today revealed no sign of heart damage or abnormal heart rhythm or lung pathology. Based on your history exam and workup I feel the sensation you had this evening was related to pressure and changes to the stomach/gastrointestinal region. This most likely occurs based on the large amount of soda pop and vaping that you do. Please try to reduce this in order to help prevent recurrence of symptoms. Follow-up with your family doctor and/or Dr. Christian for repeat evaluation and return to the ER should you have any further concerns Print Language: Estonian Disposition Disposition: Home, Self Care Discharge Date/Time: 03/13/25 02:10
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
[2025-03-13 02:10] VITALS: BP 121/79; PULSE 62; RESP 16; TEMP 36.6; O2SAT 99
== END 2025-03-13 02:10 | disposition home or self-care (01) ==
PROVIDERS: Emergency Provider Emergency Medicine; Visit Provider Emergency Medicine
DX: R07.9 Chest pain, unspecified (principal); F12.90 Cannabis use, unspecified, uncomplicated; F90.9 Attention-deficit hyperactivity disorder, unspecified type; F17.290 Nicotine dependence, other tobacco product, uncomplicated
CPT/HCPCS: 71046; 80048; 83735; 84484; 85025; 93005; 99285; A4216